=== PATIENT | female | born 1985 | race Caucasian/White ===

== ENCOUNTER 2023-04-14 13:41 | Emergency (ER) | payer MEDICAID, SELFPAY ==
--- NOTE | ~2023-04-14 | CT_ITS ---
EXAMINATION: CT soft tissue neck w con DATE: 04/14/2023 19:51 INDICATION: Right posterior neck pain. Dysphagia. TECHNIQUE: Computed tomography (CT) of the neck was performed with 75 mL Omnipaque-350 intravenous co ntrast. Automated exposure control and iterative reconstruction technique were employed. The dose-iftikhar gth product was 493.99 mGy-cm. COMPARISON: None FINDINGS: There is an aberrant right subclavian artery. The cervical carotid arteries are normal. The re are no pathologically enlarged lymph nodes. The pharynx and larynx are normal. There is mild cervi brandy spondylosis. IMPRESSION: 1. No etiology for the patient's symptoms. Reviewed, dictated and finalized at location E. [employer]
[2023-04-14 13:50] VITALS: BP 166/98; PULSE 98; RESP 16; TEMP 37.3; O2SAT 99
[2023-04-14 16:10] VITALS: BP 133/91; PULSE 98; RESP 16; TEMP 36.6; O2SAT 98
--- NOTE | 2023-04-14 17:52 | ED.NECK ---
HPI - Neck Pain/Injury General Chief Complaint: Neck Pain/Injury Stated Complaint: neck stiffness/pain, nausea Time Seen by Provider: 04/14/23 17:01 Source: patient Mode of arrival: ambulatory Limitations: no limitations History of Present Illness HPI Narrative: Patient is a 37 y/o female, with PMH of migraines, who presents to the ED with multiple complaints. Patient reports she had a migraine last week which was present for several days before resolving. Since Thursday, she has had pain in her right posterior and lateral neck, worse with movement. She is unsure if she slept wrong with this. She has been taking Aleve and using topical icy Hot with lidocaine with some relief. Patient also reports having intermittent nausea, spider bite to her right hand, as well as intermittent dysphagia for the last 2 days. She notes having occasional difficulty swallowing solids. Denies sore throat, difficulty breathing, abdominal pain. Denies numbness or tingling. Denies further headache. Denies fevers. Denies weakness of right upper extremity. Denies previous history of acid reflux. Related Data Allergies Allergy/AdvReac Type Severity Reaction Status Date / Time No Known Allergies Allergy Verified 04/14/23 16:09 Review of Systems Review of Systems: CONSTITUTIONAL: Denies fever, chills, or sweats. ENT: See HPI. CARDIOVASCULAR: Denies chest pain, palpitations, or edema. RESPIRATORY: Denies dyspnea. GASTROINTESTINAL: See HPI. SKIN: See HPI MUSCULOSKELETAL: See HPI NEUROLOGIC: See HPI All systems reviewed & are unremarkable except as noted in HPI and below Exam Narrative: GENERAL: Anxious appearing, morbidly obese with BMI 41.5, non-toxic, in no acute distress. HEAD: Normocephalic, atraumatic. NECK: No significant posterior midline spinal tenderness. Mild tenderness throughout right paraspinal musculature extending into right trapezius/posterior SCM muscle. No meningeal signs. Sensation intact. Trachea midline. No palpable lymphadenopathy. No enlargement of thyroid or large thyroid mass is noted with palpation. RESPIRATORY: Airway patent, respirations nonlabored. Clear to auscultation bilaterally, no rales, rhonchi, wheezing. CARDIOVASCULAR: Regular rate and rhythm without murmurs, rubs, or gallops. MUSCULOSKELETAL: Moves all extremities. No gross deformities. No pain with range of motion of right arm. SKIN: Warm, dry, normal color. Small abrasion to base of R thumb on dorsal surface. No surrounding erythema, drainage, pustular formation. NEURO: A&O X3. Speech clear. Cranial nerves II-XII grossly intact. Steady gait. No ataxic movements. Strength equal in upper extremities bilaterally. Sensation intact throughout right upper extremity. PSYCHIATRIC: Anxious, tearful. Normal interaction. Course Vital Signs Vital signs: Vital Signs Temperature 99.2 F 04/14/23 13:50 Pulse Rate 98 04/14/23 13:50 Respiratory Rate 16 04/14/23 13:50 Blood Pressure 166/98 H 04/14/23 13:50 Pulse Oximetry 99 04/14/23 13:50 Oxygen Delivery Room Air 04/14/23 13:50 Temperature 97.8 F 04/14/23 16:10 Pulse Rate 98 04/14/23 16:10 Respiratory Rate 16 04/14/23 16:10 Blood Pressure 133/91 H 04/14/23 16:10 Pulse Oximetry 98 04/14/23 16:10 Oxygen Delivery Room Air 04/14/23 13:50 MDM - Neck Pain/Injury MDM Narrative Medical decision making narrative: Patient presented to ED with multiple complaints, several day history of right-sided neck pain, nausea, dysphagia, recent migraine, possible spider bite to right hand. Vital signs stable upon arrival. Patient does appear anxious, tearful on exam. Migraine currently resolved, did feel similar to her typical migraines. Patient is neurologically intact. No focal deficits appreciated on exam. No meningeal signs. Neck pain seems very much musculoskeletal in nature, worse with movement, tenderness along several muscle distributions. Lesion to right hand does no
[2023-04-14] MEDS: CYCLOBENZAPRINE HCL 5 MG TABLET PO (18:07)
[2023-04-14] MEDS: KETOROLAC (*BKC) 60 MG/2 ML VIAL IM (18:07)
[2023-04-14] MEDS: BELLADONNA ALK/PHENOB ELIX 10 ML, MAG HYDROX/ALUMINUM HYD/SIMETH 30 ML, LIDOCAINE HCL 2... PO (18:08)
[2023-04-14 18:25] LABS: Basophils Absolute Auto 0.1 K/mm3 (0.0-0.1); Basophils Percent Auto 0.4 % (0.2-1.2); Eosinophils Percent Auto 0.1 % (0-4.4); Hematocrit 44.1 % (37.0-47.0); Hemoglobin 14.7 g/dL (12.0-15.0); Immature Granulocyte Absolute 0.02 K/mm3 (0.00-0.031); Immature Granulocyte Percent A 0.2 % (0-0.5); Lymphocytes Absolute Auto 2.95 K/mm3 (0.9-3.2); Lymphocytes Percent Auto 25.8 % (18.3-44.2); Mean Corpuscular HGB Conc 33.3 g/dl (32-36); Mean Corpuscular Hemoglobin 32.3 pg (26-34); Mean Corpuscular Volume 96.9 fl (80-100); Mean Platelet Volume 10.8 fl (7.4-10.4); Monocytes Absolute Auto 0.7 K/mm3 (0.1-0.6); Monocytes Percent Auto 6.2 % (2.6-8.5); Neutrophils Absolute Auto 7.7 K/mm3 (1.3-6.7); Neutrophils Percent Auto 67.3 % (45.5-73.1); Platelet Count Result 369 k/mm3 (150-375); Red Blood Count 4.55 M/mm3 (4.2-5.4); Red Cell Distribution Width 12.7 % (11.5-14.5); White Blood Count 11.4 K/mm3 (4.5-10.0)
[2023-04-14 19:20] LABS: Anion Gap 11 mmol/L (8-16); Blood Urea Nitrogen 12 mg/dL (7-17); Calcium 9.3 mg/dL (8.4-10.2); Carbon Dioxide 21 mmol/L (22-30); Chloride 104 mmol/L (98-107); Estimated CRCL calculation 117 ml/min; Estimated Glomerular Filt Rate > 60; Glucose 109 mg/dL (65-110); Potassium 3.5 mmol/L (3.4-5.0); Sodium 136 mmol/L (137-145)
--- NOTE | 2023-04-14 19:29 | PC.NURSE ---
Assumed care of pt. Report from dayshift. Pt resting on stretcher. States that the muscle pain has resolved, bu tnow her neck is also hurting. States had declined the tylenol previous due to it making her nauseated on an empty stomach in the past. Awaiting CT scan. Farner provided.
[2023-04-14 21:01] VITALS: BP 130/88; PULSE 90; RESP 16; O2SAT 99
== END 2023-04-14 20:45 | disposition home or self-care (01) ==
PROVIDERS: Emergency Provider Physician Assistant
DX: S16.1XXA Strain of muscle, fascia and tendon at neck level, initial encounter (principal); R13.10 Dysphagia, unspecified; M47.812 Spondylosis without myelopathy or radiculopathy, cervical region; X58.XXXA Exposure to other specified factors, initial encounter
CPT/HCPCS: 36415; 70491; 80048; 81025; 85025; 96372; 99284; A9270; J1885; Q9967

== ENCOUNTER 2023-11-25 11:49 | Emergency (ER) | payer BC, SELFPAY ==
[2023-11-25] VITALS (26 sets, daily range): BP systolic 110–187; BP diastolic 52–171; PULSE 71–112; RESP 12–28; TEMP 36.2–36.6; O2SAT 84–99
--- NOTE | ~2023-11-25 | XR_ITS ---
EXAMINATION: XR chest 2V 11/25/2023 12:54 INDICATION: Chest pain PROCEDURE: 2 view chest COMPARISON: No prior studies for comparison. FINDINGS: The lungs are clear. The cardiomediastinal silhouette is within normal limits. There are no pleural effusions. There is no pneumothorax suspected. IMPRESSION: 1: NO ACUTE CARDIOPULMONARY DISEASE. Reviewed, dictated and finalized at location B.
--- NOTE | 2023-11-25 11:49 | ECG_ITS ---
Test Date: 2023-11-25 11:54:47 Measurements Intervals Winn Rate: 100 P: 52 TN: 134 QRS: 1 QRSD: 86 T: 5 QT: 329 QTc: 425 Interpretive Statements SINUS TACHYCARDIA POSSIBLE LEFT ATRIAL ENLARGEMENT LOW QRS VOLTAGE IN PRECORDIAL LEADS DELAYED PRECORDIAL R/S TRANSITION BORDERLINE ST-T WAVE ABNORMALITY- ANT/INF LEADS BASELINE ARTIFACT- I, II, III, AVR, AVF, V4-V6 BORDERLINE ECG No previous ECG available for comparison Electronically Signed On 11-25-2023 12:54:39 CDT by Jordan Bone D.O.
[2023-11-25 12:07] LABS: Basophils Absolute Auto 0.1 K/mm3 (0.0-0.1); Basophils Percent Auto 0.6 % (0.2-1.2); Eosinophils Percent Auto 0.1 % (0-4.4); Hemoglobin 14.4 g/dL (12.0-15.0); Immature Granulocyte Absolute 0.03 K/mm3 (0.00-0.031); Immature Granulocyte Percent A 0.3 % (0-0.5); Lymphocytes Absolute Auto 1.18 K/mm3 (0.9-3.2); Lymphocytes Percent Auto 11.4 % (18.3-44.2); Mean Corpuscular HGB Conc 34.3 g/dl (32-36); Mean Corpuscular Hemoglobin 32.9 pg (26-34); Mean Corpuscular Volume 95.9 fl (80-100); Mean Platelet Volume 10.3 fl (7.4-10.4); Monocytes Absolute Auto 0.7 K/mm3 (0.1-0.6); Neutrophils Absolute Auto 8.3 K/mm3 (1.3-6.7); Neutrophils Percent Auto 80.6 % (45.5-73.1); Platelet Count Result 332 k/mm3 (150-375); Red Blood Count 4.38 M/mm3 (4.2-5.4); Red Cell Distribution Width 12.2 % (11.5-14.5); White Blood Count 10.3 K/mm3 (4.5-10.0)
[2023-11-25 12:17] LABS: Alanine Aminotransferase 21 U/L (6-35); Albumin Level 4.6 g/dL (3.5-5.1); Alkaline Phosphatase 77 U/L (38-126); Anion Gap 11 mmol/L (4-12); Aspartate Amino Transferase 23 U/L (14-36); Bilirubin,Total 0.5 mg/dL (0.2-1.3); Blood Urea Nitrogen 11 mg/dL (7-17); Calcium 9.7 mg/dL (8.4-10.2); Carbon Dioxide 24 mmol/L (22-30); Chloride 102 mmol/L (98-107); Estimated CRCL calculation 117 ml/min; Estimated Glomerular Filt Rate > 60; Glucose 118 mg/dL (65-110); Lipase 122 U/L (23-300); Potassium 3.9 mmol/L (3.4-5.0); Sodium 137 mmol/L (137-145)
[2023-11-25 12:23] LABS: INR 1.1; Partial Thromboplastin Time 29.7 Seconds (22.3-36.8); Prothrombin Time 14.2 Seconds (11.1-14.7)
[2023-11-25 12:28] LABS: Troponin I < 0.012 ng/mL (0.000-0.034)
[2023-11-25] MEDS: ASPIRIN 81 MG CHEWABLE TABLET 324 MG PO (12:48)
--- NOTE | 2023-11-25 12:52 | ED.CHESTPAIN ---
HPI - Chest Pain General Chief Complaint: Chest Pain Stated Complaint: chest pain Time Seen by Provider: 11/25/23 12:42 History of Present Illness HPI narrative: 38-year-old female presenting to the emergency department for evaluation for multiple symptoms including chest pain lightheaded dizziness and weakness that is been ongoing for approximately 3 months. Patient also states she has had increased belching. Patient was referred to the emergency department by her primary care physician. Related Data Allergies Allergy/AdvReac Type Severity Reaction Status Date / Time No Known Allergies Allergy Verified 04/14/23 16:09 Review of Systems Review of Systems: All systems reviewed & are unremarkable except as noted in HPI and below Exam Narrative: APPEARANCE: Well appearing, no pain, no distress, well-nourished. HEAD: normocephalic, atraumatic. EYES: PERRLA/EOMI, conjunctivae clear. NOSE: Normal no drainage EARS:TMS clear with good light reflex. THROAT: Pharynx clear, no exudate. NECK: Supple. No adenopathy, no masses. RESPIRATORY: Airway patent, respirations nonlabored. Clear to auscultation bilaterally, no rales, rhonchi, wheezing. CARDIOVASCULAR: Regular rate and rhythm without murmurs rubs or gallops. ABDOMINAL: Soft, nontender, nondistended, normal bowel sounds MUSCULOSKELETAL: Moves all extremities. Strength/ROM intact, No edema, No calf tenderness. NEURO: Alert. Cranial nerves II through XII intact. Good gait. Good coordination SKIN: Warm, dry. Normal Color Course Vital Signs Vital signs: Vital Signs Temperature 97.2 F L 11/25/23 11:54 Pulse Rate 112 H 11/25/23 11:54 Respiratory Rate 18 11/25/23 11:54 Blood Pressure 155/93 H 11/25/23 11:54 Pulse Oximetry 98 11/25/23 11:54 Oxygen Delivery Room Air 11/25/23 11:54 Temperature 97.8 F 11/25/23 12:52 Pulse Rate 77 11/25/23 15:32 Respiratory Rate 16 11/25/23 15:32 Blood Pressure 110/52 L 11/25/23 15:32 Pulse Oximetry 98 11/25/23 15:32 Oxygen Delivery Room Air 11/25/23 12:50 MDM - Chest Pain MDM Narrative Medical decision making narrative: 38-year-old female presented to the emergency department for evaluation for left-sided chest pain. Patient is afebrile with a leukocytosis of 10.3 and hemoglobin of 14.4. Patient has a normal INR and her D-dimer is not elevated. Patient has no acute abnormalities on her CMP. Troponin was negative. Thyroid was negative. Patient was negative for influenza RSV and for COVID. Chest x-ray shows no acute cardiopulmonary abnormality. EKG showed normal sinus rhythm. Patient was updated results of workup. Patient was comfortable plan with for discharge and close follow-up. Differential Diagnosis Differential diagnosis: Likely pneumothorax, atypical chest pain, st elevation myocardial infarction, chest pain and biliary colic Lab Data Attestation: I reviewed the patient's lab results. 11/25/23 12:01 11/25/23 12:01 Labs: Lab Results 11/25/23 11/25/23 11/25/23 Range/Units 12:01 13:19 15:26 WBC 10.3 H (4.5-10.0) K/mm3 RBC 4.38 (4.2-5.4) M/mm3 Hgb 14.4 (12.0-15.0) g/dL Hct 42.0 (37.0-47.0) % MCV 95.9 (80-100) fl MCH 32.9 (26-34) pg MCHC 34.3 (32-36) g/dl RDW 12.2 (11.5-14.5) % Plt Count 332 (150-375) k/mm3 MPV 10.3 (7.4-10.4) fl Immature Gran % (Auto) 0.3 (0-0.5) % Neut % (Auto) 80.6 H (45.5-73.1) % Lymph % (Auto) 11.4 L (18.3-44.2) % Ogle % (Auto) 7.0 (2.6-8.5) % Eos % (Auto) 0.1 (0-4.4) % Baso % (Auto) 0.6 (0.2-1.2) % Lymph # (Auto) 1.18 (0.9-3.2) K/mm3 Ogle # (Auto) 0.7 H (0.1-0.6) K/mm3 Eos # (Auto) 0.0 (0-0.3) K/mm3 Baso # (Auto) 0.1 (0.0-0.1) K/mm3 Abs Immat Gran (auto) 0.03 (0.00-0.031) K/mm3 Absolute Neuts (auto) 8.3 H (1.3-6.7) K/mm3 Absolute Nucleated RBC 0.000 (0.0-0.012) K/mm3 Nucleated RBC % 0.0 (0.0-0.2) % PT 14.2 (
[2023-11-25 13:41] LABS: Magnesium 1.7 mg/dL (1.6-2.3)
[2023-11-25 13:54] LABS: D Dimer < 0.27 ug/mL (<0.48)
[2023-11-25 14:12] LABS: Thyroid Stimulating Hormone Reflex 0.892 uIU/mL (0.465-4.68)
[2023-11-25 14:14] LABS: Influenza A QL RT-PCR Negative (Negative); Influenza B QL RT-PCR Negative (Negative); RSV RNA, RT-PCR Negative (Negative); SARS-CoV-2 RNA PCR Negative (Negative)
[2023-11-25 15:58] LABS: Troponin I < 0.012 ng/mL (0.000-0.034)
== END 2023-11-25 15:47 | disposition home or self-care (01) ==
PROVIDERS: Emergency Medicine; Emergency Provider Emergency Medicine
DX: R07.89 Other chest pain (principal); Z20.822 Contact with and (suspected) exposure to COVID-19
CPT/HCPCS: 36415; 71046; 80053; 83690; 83735; 84443; 84484; 85025; 85380; 85610; 85730; 87637; 93005; 99284; A9270